=== PATIENT | female | born 1990 | race American Indian/Alaskan Native ===

== ENCOUNTER 2024-01-09 10:06 | Emergency (ER) | payer MEDICAID ==
[2024-01-09] MEDS: cefTRIAXone 1 GM, Lidocaine 1% 2.1 ML IM ONE (11:45)
== END 2024-01-09 11:57 | disposition home or self-care (01) ==
LOC: JD.ED 10:06
DX: H66.91 Otitis media, unspecified, right ear (principal); I10 Essential (primary) hypertension; Z87.891 Personal history of nicotine dependence; Z79.899 Other long term (current) drug therapy; Z88.5 Allergy status to narcotic agent; Z91.012 Allergy to eggs; Z91.030 Bee allergy status
CPT/HCPCS: 96372; 99282; J0696; 99283; J3490

== ENCOUNTER 2024-01-14 09:44 | Emergency (ER) | payer MEDICAID ==
[2024-01-14] MEDS: Ketorolac 30 MG/ML SDV IVPUSH ONE (12:03)
[2024-01-14] MEDS: Sodium Chloride 0.9% 10 ML Syringe FLUSH PRN (12:04)
[2024-01-14 12:26] LABS: BASOPHILS ABSOLUTE AUTO 0.1 K/mm3 (0.0-0.2); BASOPHILS PERCENT AUTO 0.4 % (0.0-1.0); EOSINOPHILS ABSOLUTE AUTO 0.1 K/mm3 (0.0-0.4); EOSINOPHILS PERCENT AUTO 0.9 % (0.0-6.0); HEMATOCRIT 25.8 % (37.0-47.0); IMMATURE GRAN ABSOLUTE AUTO 0.08 K/mm3 (0.00-0.05); IMMATURE GRAN PERCENT AUTO 0.7 % (0.0-0.4); LYMPHOCYTES ABSOLUTE AUTO 1.5 K/mm3 (1.0-4.8); LYMPHOCYTES PERCENT AUTO 12.6 % (24.0-44.0); MEAN CORPUSCULAR HEMOGLOBIN 18.5 pg (28.0-32.0); MEAN CORPUSCULAR HGB CONC 28.7 g/dl (32.0-36.0); MEAN CORPUSCULAR VOLUME 64.5 fl (83.0-99.0); MONOCYTES ABSOLUTE AUTO 0.9 K/mm3 (0.0-0.8); MONOCYTES PERCENT AUTO 7.5 % (0.0-8.0); NEUTROPHILS ABSOLUTE AUTO 9.1 K/mm3 (1.8-7.7); NEUTROPHILS PERCENT AUTO 77.9 % (41.0-71.0); NRBC ABSOLUTE 0.03 (0.00-0.02); NRBC PERCENT 0.3 % (0.0-0.2); PLATELET COUNT,PLT 359 K/mm3 (150-400); WHITE BLOOD CELL COUNT,WBC 11.69 K/mm3 (3.9-11.3)
[2024-01-14 12:30] LABS: HEMOGLOBIN 7.4 gm/dl (12.0-16.0)
[2024-01-14] MEDS: cefTRIAXone 2 GM in Sodium Chloride 0.9% 100 ML IV ONE (12:35)
[2024-01-14 12:46] LABS: PROTHROMBIN TIME 9.8 SECONDS (9.7-12.0)
[2024-01-14 12:47] LABS: INR < 0.93
[2024-01-14 12:49] LABS: LACTIC ACID 0.8 mmol/L (0.4-2.0)
[2024-01-14 12:58] LABS: A/G RATIO 0.9 (1-2); ALBUMIN 3.2 g/dl (3.4-5.0); ANION GAP 11.5 (5-15); BILIRUBIN TOTAL 0.3 mg/dL (0.2-1.0); BUN/CREATININE RATIO 21.4 (14-18); C-REACTIVE PROTEIN 0.78 mg/dL (<0.30); CALCIUM 8.1 mg/dL (8.5-10.1); CREATININE 0.7 mg/dL (0.55-1.02); EST CRCL DRUG DOSING (CG) 117.47 mL/min; POTASSIUM,K 4.5 mEq/L (3.5-5.1); PROTEIN TOTAL,TP 6.7 g/dl (6.4-8.2)
[2024-01-14 13:03] LABS: IRON,FE 11 ug/dL (50-170); PERCENT FE SATURATION 2 % (20-55); TOTAL IRON BINDING CAPACITY 444 ug/dL (100-400); TRANSFERRIN 355 mg/dL (202-364)
== END 2024-01-14 13:54 | disposition home or self-care (01) ==
LOC: JD.ED 09:44
DX: J01.00 Acute maxillary sinusitis, unspecified (principal); H66.011 Acute suppurative otitis media with spontaneous rupture of ear drum, right ear; K02.9 Dental caries, unspecified; D50.8 Other iron deficiency anemias; I10 Essential (primary) hypertension; Z90.49 Acquired absence of other specified parts of digestive tract; Z87.891 Personal history of nicotine dependence; Z79.899 Other long term (current) drug therapy; Z79.52 Long term (current) use of systemic steroids; Z91.012 Allergy to eggs; Z88.5 Allergy status to narcotic agent; Z91.030 Bee allergy status
CPT/HCPCS: 36415; 70450; 70450-26; 70486; 70486-26; 80053; 83540; 83605; 84466; 85025; 85610; 86140; 86850; 86870; 86900; 86901; 87040; 96365; 96375; 99284; 99284-25; J0696; J1885; J3490

== ENCOUNTER 2024-01-17 15:19 | Emergency (ER) | payer MEDICAID ==
[2024-01-17] MEDS: Sodium Chloride 0.9% 1,000 ML IV SCH (16:50)
[2024-01-17] MEDS: cefTRIAXone 1 GM in Sodium Chloride 0.9% 100 ML IV ONE (16:50)
[2024-01-17] MEDS: Ketorolac 30 MG/ML SDV IVPUSH ONE (16:51)
[2024-01-17] MEDS: Sodium Chloride 0.9% 10 ML Syringe FLUSH PRN (16:51)
[2024-01-17 16:53] LABS: BASOPHILS PERCENT AUTO 0.5 % (0.0-1.0); EOSINOPHILS ABSOLUTE AUTO 0.3 K/mm3 (0.0-0.4); EOSINOPHILS PERCENT AUTO 3.4 % (0.0-6.0); HEMATOCRIT 29.2 % (37.0-47.0); HEMOGLOBIN 8.3 gm/dl (12.0-16.0); IMMATURE GRAN ABSOLUTE AUTO 0.04 K/mm3 (0.00-0.05); IMMATURE GRAN PERCENT AUTO 0.5 % (0.0-0.4); LYMPHOCYTES ABSOLUTE AUTO 2.8 K/mm3 (1.0-4.8); LYMPHOCYTES PERCENT AUTO 32.2 % (24.0-44.0); MEAN CORPUSCULAR HEMOGLOBIN 18.4 pg (28.0-32.0); MEAN CORPUSCULAR HGB CONC 28.4 g/dl (32.0-36.0); MEAN CORPUSCULAR VOLUME 64.9 fl (83.0-99.0); MEAN PLATELET VOLUME 9.5 fl (9.4-12.3); MONOCYTES ABSOLUTE AUTO 0.9 K/mm3 (0.0-0.8); NEUTROPHILS ABSOLUTE AUTO 4.6 K/mm3 (1.8-7.7); NEUTROPHILS PERCENT AUTO 53.4 % (41.0-71.0); NRBC ABSOLUTE 0.02 (0.00-0.02); NRBC PERCENT 0.2 % (0.0-0.2); PLATELET COUNT,PLT 416 K/mm3 (150-400); WHITE BLOOD CELL COUNT,WBC 8.59 K/mm3 (3.9-11.3)
[2024-01-17 17:08] LABS: A/G RATIO 0.8 (1-2); ALBUMIN 3.5 g/dl (3.4-5.0); ANION GAP 9.9 (5-15); BILIRUBIN TOTAL 0.2 mg/dL (0.2-1.0); BUN/CREATININE RATIO 11.4 (14-18); C-REACTIVE PROTEIN 1.4 mg/dL (<0.30); CALCIUM 8.5 mg/dL (8.5-10.1); CREATININE 0.7 mg/dL (0.55-1.02); EST CRCL DRUG DOSING (CG) 117.47 mL/min; POTASSIUM,K 3.9 mEq/L (3.5-5.1); PROTEIN TOTAL,TP 7.7 g/dl (6.4-8.2)
[2024-01-17 17:29] LABS: SLIDE REVIEW ABNORMAL SMEAR
== END 2024-01-17 18:53 | disposition home or self-care (01) ==
LOC: JD.ED 15:19
DX: K04.7 Periapical abscess without sinus (principal); K02.9 Dental caries, unspecified; D50.8 Other iron deficiency anemias; I10 Essential (primary) hypertension; Z90.49 Acquired absence of other specified parts of digestive tract; Z79.899 Other long term (current) drug therapy; Z79.52 Long term (current) use of systemic steroids; Z91.030 Bee allergy status; Z88.5 Allergy status to narcotic agent; Z91.012 Allergy to eggs
CPT/HCPCS: 36415; 70450; 71045; 80053; 85025; 86140; 96365; 96375; 99284; J0696; J1885; J3490; J7030

== ENCOUNTER 2024-02-12 11:35 | Emergency (ER) | payer MEDICAID | END 2024-02-12 12:54 | disposition home or self-care (01) | LOC: JD.ED 11:35 | DX: H66.91 Otitis media, unspecified, right ear (principal); I10 Essential (primary) hypertension; Z91.030 Bee allergy status; Z88.5 Allergy status to narcotic agent; Z91.012 Allergy to eggs; Z79.899 Other long term (current) drug therapy; Z90.49 Acquired absence of other specified parts of digestive tract | CPT/HCPCS: 99283 ==

== ENCOUNTER 2024-04-26 11:11 | Emergency (ER) | payer MEDICAID ==
[2024-04-26 12:49] LABS: BASOPHILS PERCENT AUTO 0.5 % (0.0-1.0); EOSINOPHILS ABSOLUTE AUTO 0.1 K/mm3 (0.0-0.4); EOSINOPHILS PERCENT AUTO 1.8 % (0.0-6.0); HEMATOCRIT 35.5 % (37.0-47.0); HEMOGLOBIN 11.1 gm/dl (12.0-16.0); IMMATURE GRAN ABSOLUTE AUTO 0.02 K/mm3 (0.00-0.05); IMMATURE GRAN PERCENT AUTO 0.3 % (0.0-0.4); LYMPHOCYTES PERCENT AUTO 26.9 % (24.0-44.0); MEAN CORPUSCULAR HEMOGLOBIN 23.1 pg (28.0-32.0); MEAN CORPUSCULAR HGB CONC 31.3 g/dl (32.0-36.0); MEAN PLATELET VOLUME 10.3 fl (9.4-12.3); MONOCYTES ABSOLUTE AUTO 0.5 K/mm3 (0.0-0.8); MONOCYTES PERCENT AUTO 6.2 % (0.0-8.0); NEUTROPHILS ABSOLUTE AUTO 4.9 K/mm3 (1.8-7.7); NEUTROPHILS PERCENT AUTO 64.3 % (41.0-71.0); PLATELET COUNT,PLT 300 K/mm3 (150-400); WHITE BLOOD CELL COUNT,WBC 7.59 K/mm3 (3.9-11.3)
[2024-04-26 12:59] LABS: A/G RATIO 0.8 (1-2); ALBUMIN 3.1 g/dl (3.4-5.0); BILIRUBIN TOTAL 0.2 mg/dL (0.2-1.0); BUN/CREATININE RATIO 12.2 (14-18); CALCIUM 8.9 mg/dL (8.5-10.1); CREATININE 0.9 mg/dL (0.55-1.02); EST CRCL DRUG DOSING (CG) 90.53 mL/min
== END 2024-04-26 15:13 | disposition home or self-care (01) ==
LOC: JD.ED 11:11
DX: H66.3X1 Other chronic suppurative otitis media, right ear (principal); I10 Essential (primary) hypertension; F17.210 Nicotine dependence, cigarettes, uncomplicated; Z90.49 Acquired absence of other specified parts of digestive tract; Z86.16 Personal history of COVID-19; Z79.1 Long term (current) use of non-steroidal anti-inflammatories (NSAID); Z79.899 Other long term (current) drug therapy; Z91.012 Allergy to eggs; Z91.030 Bee allergy status; Z88.5 Allergy status to narcotic agent
CPT/HCPCS: 36415; 70450; 70450-26; 70486; 70486-26; 80053; 84703; 85025; 99283

== ENCOUNTER 2024-08-07 04:57 | Emergency (ER) | payer MEDICAID ==
[2024-08-07] MEDS: Acetaminophen 325 MG Tab PO ONE (05:38)
[2024-08-07] MEDS: Ondansetron 4 MG/2 ML SDV IVPUSH ONE (05:38)
[2024-08-07] MEDS: Sodium Chloride 0.9% 1,000 ML IV ONE (05:38)
[2024-08-07 05:41] LABS: BASOPHILS PERCENT AUTO 0.4 % (0.0-1.0); EOSINOPHILS PERCENT AUTO 0.1 % (0.0-6.0); HEMATOCRIT 35.7 % (37.0-47.0); HEMOGLOBIN 11.1 gm/dl (12.0-16.0); IMMATURE GRAN ABSOLUTE AUTO 0.06 K/mm3 (0.00-0.05); IMMATURE GRAN PERCENT AUTO 0.5 % (0.0-0.4); LYMPHOCYTES ABSOLUTE AUTO 2.2 K/mm3 (1.0-4.8); LYMPHOCYTES PERCENT AUTO 19.3 % (24.0-44.0); MEAN CORPUSCULAR HEMOGLOBIN 22.2 pg (28.0-32.0); MEAN CORPUSCULAR HGB CONC 31.1 g/dl (32.0-36.0); MEAN CORPUSCULAR VOLUME 71.3 fl (83.0-99.0); MEAN PLATELET VOLUME 9.8 fl (9.4-12.3); MONOCYTES ABSOLUTE AUTO 0.7 K/mm3 (0.0-0.8); MONOCYTES PERCENT AUTO 6.3 % (0.0-8.0); NEUTROPHILS ABSOLUTE AUTO 8.2 K/mm3 (1.8-7.7); NEUTROPHILS PERCENT AUTO 73.4 % (41.0-71.0); RED BLOOD CELL COUNT 5.01 M/mm3 (4.10-5.30); WHITE BLOOD CELL COUNT,WBC 11.17 K/mm3 (3.9-11.3)
[2024-08-07 05:46] LABS: PLATELET COUNT,PLT 381 K/mm3 (150-400)
[2024-08-07 06:07] LABS: ALANINE AMINOTRANSFERASE,ALT 37 U/L (14-59); ALKALINE PHOSPHATASE 108 U/L (46-116); ANION GAP 16.2 (5-15); ASPARTATE AMNIOTRANSFERASE,AST 29 U/L (15-37); BILIRUBIN TOTAL 0.5 mg/dL (0.2-1.0); BLOOD UREA NITROGEN,BUN 31 mg/dL (7-18); BUN/CREATININE RATIO 22.1 (14-18); CALCIUM 8.8 mg/dL (8.5-10.1); CARBON DIOXIDE,CO2 23 mEq/L (21-32); CHLORIDE,CL 102 mEq/L (98-107); CREATINE KINASE,CK 167 U/L (26-192); CREATININE 1.4 mg/dL (0.55-1.02); ESTIMATED GFR 51 mL/min (>60); GLUCOSE RANDOM 74 mg/dL (70-99); LIPASE 25 U/L (16-77); MAGNESIUM 1.8 mg/dL (1.8-2.4); POTASSIUM,K 4.2 mEq/L (3.5-5.1); PROTEIN TOTAL,TP 8.2 g/dl (6.4-8.2); SODIUM,NA 137 mEq/L (136-145)
[2024-08-07 06:09] LABS: INR 0.99; PROTHROMBIN TIME 10.5 SECONDS (9.7-12.0)
[2024-08-07 07:03] LABS: BARBITURATE SCREEN,URINE NEGATIVE (CUTOFF=200); BENZODIAZEPINES SCREEN,URINE NEGATIVE (CUTOFF=150); METHADONE SCREEN, URINE NEGATIVE (CUTOFF=200); METHAMPHETAMINES SCREEN, URINE PRESUMPTIVE POSITIVE (CUTOFF=500); OXYCODONE SCREEN,URINE NEGATIVE (CUT0FF=100); THC SCREEN,URINE 20 NG/ML NEGATIVE (CUTOFF=50)
[2024-08-07 07:14] LABS: BUPRENORPHINE SCREEN,URINE NEGATIVE (CUTOFF=10)
[2024-08-07 07:18] LABS: AMPHETAMINES SCREEN, URINE PRESUMPTIVE POSITIVE (CUTOFF=500)
== END 2024-08-07 07:40 | disposition home or self-care (01) ==
LOC: JD.ED 04:57
DX: R20.2 Paresthesia of skin (principal); Z59.00 Homelessness unspecified; I10 Essential (primary) hypertension; Z88.5 Allergy status to narcotic agent; Z91.012 Allergy to eggs; Z91.018 Allergy to other foods; Z79.899 Other long term (current) drug therapy; Z86.16 Personal history of COVID-19; Z90.49 Acquired absence of other specified parts of digestive tract
CPT/HCPCS: 36415; 80053; 80306; 81025; 82550; 83690; 83735; 85025; 85610; 87428; 96374; 99284; A9270; J2405; J7030; 99283